=== PATIENT | female | born 1980 ===

== ENCOUNTER 2018-07-26 08:58 | Outpatient (CLI) | payer OTHER | END 2018-07-26 08:59 | disposition home or self-care (01) | LOC: C.LAB 08:58 | DX: I10 Essential (primary) hypertension (principal) ==

== ENCOUNTER 2018-07-30 08:24 | Outpatient (CLI) | payer OTHER | END 2018-07-30 08:25 | disposition home or self-care (01) | LOC: C.USIC 08:24 | DX: R80.9 Proteinuria, unspecified (principal) ==